=== PATIENT | male | born 1925 | race Caucasian/White ===

== ENCOUNTER 2017-03-03 16:20 | Emergency (ER) | payer MEDICARE, BC ==
[2017-03-03 17:27] LABS: BASOPHILS % (AUTO) 1 % (0-3); EOSINOPHILS % (AUTO) 3 % (0-9); HEMATOCRIT 30 % (39-53); MEAN CORPUSCULAR HGB CONC 32.3 gm/dl (32.0-36.0); MONOCYTES % (AUTO) 9.2 % (0-12)
[2017-03-03 17:39] LABS: MEAN CORPUSCULAR VOLUME 99 fL (80-100)
[2017-03-03 17:52] LABS: ALBUMIN 2.8 gm/dl (3.4-5.0); CALCIUM 8.1 mg/dl (8.5-10.1); POTASSIUM 6.5 mMol/L (3.5-5.1)
[2017-03-03 18:00] LABS: APPEARANCE,URINE CLOUDY; COLOR,URINE YELLOW
[2017-03-03 18:01] LABS: BILIRUBIN,URINE NEGATIVE (NEGATIVE); GLUCOSE, URINE (UA) NEGATIVE (NEGATIVE); KETONES,URINE NEGATIVE (NEGATIVE); LEUKOCYTE ESTERASE ,URINE 3+ (NEGATIVE); NITRATE,URINE NEGATIVE (NEGATIVE); OCCULT BLOOD,URINE 3+ (NEG-TRACE); RBC,URINE 25-35 (0-3AV/HPF); UROBILINOGEN,URINE 0.2 (0.2-1.0 EU); WBC,URINE 100-120 (0-5AV/HPF)
[2017-03-03 18:25] VITALS: TEMP 97.5
[2017-03-03 19:14] VITALS: BP 129/67; PULSE 115; RESP 14; O2SAT 97
== END 2017-03-03 18:54 | disposition short-term general hospital (02) | DRG 316 ==
LOC: ED 16:20
DX: T82.9XXA Unspecified complication of cardiac and vascular prosthetic device, implant and graft, initial encounter (principal); I95.9 Hypotension, unspecified; I50.9 Heart failure, unspecified; R00.0 Tachycardia, unspecified; R53.1 Weakness; R41.0 Disorientation, unspecified; R47.81 Slurred speech; R30.0 Dysuria
CPT/HCPCS: 36415; 71010; 80053; 81001; 82140; 83880; 85025; 87088; 93005; 99285; 99291